=== PATIENT | female | born 1950 | race Caucasian/White ===

== ENCOUNTER 2022-06-24 09:04 | Outpatient (CLI) | payer OTHER, SELFPAY | END 2022-06-24 09:05 | disposition home or self-care (01) | LOC: NFLDREF 06-25 06:48 | PROVIDERS: PCP Family Medicine; Referring Provider Family Medicine; Visit Provider Family Medicine | DX: Z00.00 Encounter for general adult medical examination without abnormal findings (principal); E78.00 Pure hypercholesterolemia, unspecified | CPT/HCPCS: 80048; 80061 ==

== ENCOUNTER 2023-07-25 09:13 | Outpatient (CLI) | payer OTHER, SELFPAY | END 2023-07-25 09:14 | disposition home or self-care (01) | LOC: NFLDREF 07-26 06:08 | PROVIDERS: PCP Family Medicine; Referring Provider Family Medicine; Visit Provider Family Medicine | DX: Z13.1 Encounter for screening for diabetes mellitus (principal); E78.2 Mixed hyperlipidemia | CPT/HCPCS: 80048; 80061 ==

== ENCOUNTER 2024-12-16 08:24 | Outpatient (CLI) | payer MEDICARE, BC, SELFPAY | END 2024-12-16 08:25 | disposition home or self-care (01) | LOC: NFLDREF 12-19 09:37 | PROVIDERS: PCP Family Medicine; Referring Provider Family Medicine; Visit Provider Family Medicine | DX: E78.00 Pure hypercholesterolemia, unspecified (principal); K92.1 Melena; R53.83 Other fatigue; Z13.1 Encounter for screening for diabetes mellitus; Z13.21 Encounter for screening for nutritional disorder; Z13.29 Encounter for screening for other suspected endocrine disorder; Z13.6 Encounter for screening for cardiovascular disorders | CPT/HCPCS: 80053; 80061; 82306; 82607; 84443 ==